=== PATIENT | female | born 1975 ===

== ENCOUNTER 2019-05-18 15:40 | Outpatient (CLI) | payer OTHER ==
--- NOTE | 2019-05-18 16:01 | ULT ---
Thyroid sonogram HISTORY: Thyroid nodule. FINDINGS: Right thyroid lobe measures up to 4.8 cm and the left 4.6 cm. Diffusely heterogeneous echot exture. There is a 0.5 cm oval cyst within the isthmus. No solid masses reliably demonstrated. IMPRESSION: Tiny cyst within the thyroid isthmus. Heterogeneous echotexture. No dominant mass is demonstrated.
== END 2019-05-18 15:41 | disposition home or self-care (01) ==
LOC: BICULT 15:40
DX: E05.90 Thyrotoxicosis, unspecified without thyrotoxic crisis or storm (principal); E04.1 Nontoxic single thyroid nodule
CPT/HCPCS: 76536